=== PATIENT | female | born 1945 | race Caucasian/White ===

== ENCOUNTER 2018-05-15 07:43 | Emergency (ER) | payer MEDICARE | END 2018-05-15 09:03 | disposition home or self-care (01) | LOC: M ED 07:43 | DX: M17.12 Unilateral primary osteoarthritis, left knee (principal); I10 Essential (primary) hypertension; E11.9 Type 2 diabetes mellitus without complications; K21.9 Gastro-esophageal reflux disease without esophagitis; M85.862 Other specified disorders of bone density and structure, left lower leg; Z79.82 Long term (current) use of aspirin; Z79.84 Long term (current) use of oral hypoglycemic drugs; Z79.899 Other long term (current) drug therapy; Z91.89 Other specified personal risk factors, not elsewhere classified; Z88.5 Allergy status to narcotic agent; Z88.0 Allergy status to penicillin | CPT/HCPCS: 73564 ==

== ENCOUNTER → 2019-05-21 | Outpatient (CLI) | payer MEDICARE ==
[~2019-05-21] MED LIST: ASPI81TA21 PO; GABA-1171 PO; INDA125TA PO; LISI40TA PO; METF500T4 PO; PRAV40TA2 PO; PROHANCE 279.3MG/ML 15ML VIAL (A9576) As Ordered ONE; PROHANCE 279.3MG/ML 5ML VIAL (A9576) As Ordered ONE
--- NOTE | 2019-05-21 14:39 | REP ---
MRI LUMBAR SPINE WITHOUT AND WITH IV GADOLINIUM: HISTORY: Degenerative disc disease. Spinal stenosis. Comparison radiographs are from May 24, 2004. Gadolinium enhancement dose: 16 mL of intravenous ProHance. TECHNIQUE: Sagittal and axial T1- and T2-weighted scans are acquired in the usual fashion with and without fat saturation. Sequences include spin echo, turbo spin-echo, and STIR imaging sequences. MRI FINDINGS: There is straightening of the normal lumbar lordosis. Cortical and medullary bone signal intensity are normal. No bony destructive lesion is seen. No fracture or collapse is seen. No evidence of spondylolisthesis. Pedicles and posterior elements are intact. The tip of the conus medullaris is normal in position and appearance at L1. There is a 3.5 cm simple cyst in the medial cortex of the left kidney. There is another smaller cyst incompletely seen at the upper pole of the left kidney. Normal caliber aorta. No other extra spinal abnormality is seen. At the T12-L1 level, there is prominent posterior disc ridging effacing the ventral subarachnoid space. There is an annulus tear here indicating a broad-based disc protrusion. This does not compress or displace the cord. There is mild facet hypertrophy at T12-L1. L1-L2, there is mild to moderate diffuse disc bulging effacing the ventral subarachnoid space. No central canal stenosis is seen. No neural foraminal lesion is seen. No focal disc herniation noted. At L2-3 , there is degenerative disc narrowing and moderate diffuse disc bulging. There is mild central canal stenosis due to disc bulging, developmentally short pedicles, and ligamentum flavum and facet hypertrophy. Midline AP dimension of the thecal sac at L2-3 is 9 mm. There is some foraminal disc segment bulging which produces mild foraminal narrowing on the right. At the L3-4, there is mild diffuse disc bulging. Ligamentum flavum and facet hypertrophy are noted. There is left foraminal disc bulging at L3-4. No nerve root compression is seen however. Mild facet hypertrophy is noted. At L4-5 there is degenerative narrowing of the disc and diffuse disc bulging is seen. There is a right foraminal focal disc protrusion producing right neural foraminal narrowing. Left neural foramen is adequate. Canal size is mildly narrowed due to disc bulging, ligamentum flavum and facet hypertrophy. The mid line AP dimension of the thecal sac at this level is 10.3 mm. At L5-S1, there is moderate facet hypertrophy bilaterally. There is central disc bulging. Bilateral neural foraminal narrowing is seen at L5-L1 due to disc bulging and facet hypertrophy. No significant gadolinium enhancement is appreciated. IMPRESSION: Degenerative spondylosis changes. Central canal stenosis at L2-3 and L4-5. Neural foraminal narrowing as above. Left renal cysts. Electronically Signed by Avinash Razo MD 05/21/2019 03:45 P
== END ==
LOC: M RAD 09:20
PROVIDERS: ATTEND Neurological Surgery
DX: M48.061 Spinal stenosis, lumbar region without neurogenic claudication (principal); M51.36 Other intervertebral disc degeneration, lumbar region; N28.1 Cyst of kidney, acquired
CPT/HCPCS: 72158; A9576

== ENCOUNTER 2019-07-31 09:28 | Day surgery (SDC) | payer MEDICARE ==
[~2019-07-31] VITALS: Ht 160 cm; Wt 79.3 kg
[~2019-07-31 09:28] MED LIST changes: +CHOL100029 PO; +FAMO40TA3 PO; +METF-791 PO; -METF500T4 PO; -PROHANCE 279.3MG/ML 15ML VIAL (A9576) As Ordered ONE; -PROHANCE 279.3MG/ML 5ML VIAL (A9576) As Ordered ONE
[2019-07-31] MEDS ORDERED: PROPOFOL 200 MG/20 ML VIAL As Ordered ONE (10:08)
[2019-07-31] MEDS ORDERED: LIDOCAINE 2% INJ 100 MG/5 ML SDV (FOR ANES.) As Ordered ONE (10:08)
[2019-07-31] MEDS ORDERED: NS 1,000 ML IV ONE (10:30)
[2019-07-31] MEDS ORDERED: fentaNYL 100 MCG/2 ML INJECTION (J3010) As Ordered ONE (11:45)
--- NOTE | 2019-07-31 12:39 | ROOR ---
Patient Name: Ivone Levy Procedure Date: 07/31/2019 11:37 AM Date of : 1945 Age: 73 Room: [facility] Gender: Female Note Status: Finalized Procedure: Upper GI endoscopy Indications: Heartburn, Suspected gastro-esophageal reflux disease Providers: Phoenix Albrecht MD Referring MD: MARKEL ARRIOLA MD Requesting Provider: Medicines: Monitored Anesthesia Care Complications: No immediate complications. Procedure: Pre-Anesthesia Assessment: - Prior to the procedure, a History and Physical was performed, and patient medications and allergies were reviewed. The patient is competent. The risks and benefits of the procedure and the sedation options and risks were discussed with the patient. All questions were answered and informed consent was obtained. Patient identification and proposed procedure were verified by the physician, the nurse and the anesthesiologist in the procedure room. Mental Status Examination: alert and oriented. Airway Examination: normal oropharyngeal airway and neck mobility. Respiratory Examination: clear to auscultation. CV Examination: normal. Prophylactic Antibiotics: The patient does not require prophylactic antibiotics. Prior Anticoagulants: The patient has taken no previous anticoagulant or antiplatelet agents. ASA Grade Assessment: II - A patient with mild systemic disease. After reviewing the risks and benefits, the patient was deemed in satisfactory condition to undergo the procedure. The anesthesia plan was to use monitored anesthesia care (MAC). Immediately prior to administration of medications, the patient was re-assessed for adequacy to receive sedatives. The heart rate, respiratory rate, oxygen saturations, blood pressure, adequacy of pulmonary ventilation, and response to care were monitored throughout the procedure. The physical status of the patient was re-assessed after the procedure. The Endoscope was introduced through the mouth, and advanced to the second part of duodenum. The upper GI endoscopy was accomplished without difficulty. The patient tolerated the procedure well. Findings: LA Grade A (one or more mucosal breaks less than 5 mm, not extending between tops of 2 mucosal folds) esophagitis with no bleeding was found in the distal esophagus. Biopsies were taken with a cold forceps for histology. Verification of patient identification for the specimen was done by the physician and nurse using the patient's name, date and medical record number. Estimated blood loss was minimal. The Z-line was regular and was found 40 cm from the incisors. Scattered moderate inflammation characterized by erythema and granularity was found in the gastric body and in the gastric antrum. Biopsies were taken with a cold forceps for Helicobacter pylori testing. The duodenal bulb and second portion of the duodenum were normal. Impression: - LA Grade A reflux esophagitis. Biopsied. - Z-line regular, 40 cm from the incisors. - Gastritis. Biopsied. - Normal duodenal bulb and second portion of the duodenum. Recommendation: - Patient has a contact number available for emergencies. The signs and symptoms of potential delayed complications were discussed with the patient. Return to normal activities tomorrow. Written discharge instructions were provided to the patient. - Resume previous diet. - Continue present medications. - Follow an antireflux regimen. - Await pathology results. - Telephone GI clinic for pathology results in 2 weeks. - Return to primary care physician. Phoenix Albrecht MD Phoenix Albrecht MD 07/31/2019 12:38:42 PM Electronically signed by Phoenix Albrecht MD Number of Addenda: 0 Note Initiated On: 07/31/2019 11:37 AM Estimated Blood Loss: Estimated blood loss was minimal.
[2019-07-31 12:55] VITALS: BP 117/67
--- NOTE | 2019-07-31 13:24 | ROOR ---
Patient Name: Ivone Levy Procedure Date: 07/31/2019 11:37 AM Date of : 1945 Age: 73 Room: [facility] Gender: Female Note Status: Finalized Procedure: Colonoscopy Indications: Screening patient at increased risk: Family history of 1st-degree relative with colorectal cancer at age 60 years (or older) Providers: Phoenix Albrecht MD Referring MD: MARKEL ARRIOLA MD Requesting Provider: Medicines: Monitored Anesthesia Care Complications: No immediate complications. Procedure: Pre-Anesthesia Assessment: - Prior to the procedure, a History and Physical was performed, and patient medications and allergies were reviewed. The patient is competent. The risks and benefits of the procedure and the sedation options and risks were discussed with the patient. All questions were answered and informed consent was obtained. Patient identification and proposed procedure were verified by the physician, the nurse and the anesthesiologist in the procedure room. Mental Status Examination: alert and oriented. Airway Examination: normal oropharyngeal airway and neck mobility. Respiratory Examination: clear to auscultation. CV Examination: normal. Prophylactic Antibiotics: The patient does not require prophylactic antibiotics. Prior Anticoagulants: The patient has taken no previous anticoagulant or antiplatelet agents. ASA Grade Assessment: II - A patient with mild systemic disease. After reviewing the risks and benefits, the patient was deemed in satisfactory condition to undergo the procedure. The anesthesia plan was to use monitored anesthesia care (MAC). Immediately prior to administration of medications, the patient was re-assessed for adequacy to receive sedatives. The heart rate, respiratory rate, oxygen saturations, blood pressure, adequacy of pulmonary ventilation, and response to care were monitored throughout the procedure. The physical status of the patient was re-assessed after the procedure. The Colonoscope was introduced through the anus and advanced to the terminal ileum, with identification of the appendiceal orifice and IC valve. The colonoscopy was performed without difficulty. The patient tolerated the procedure well. The quality of the bowel preparation was good. The terminal ileum, ileocecal valve, appendiceal orifice, and rectum were photographed. Scope insertion time was 3 minutes. Scope withdrawal time was 11 minutes. The total duration of the procedure was 14 minutes. Findings: The perianal and digital rectal examinations were normal. The terminal ileum appeared normal. Two sessile polyps were found in the sigmoid colon and transverse colon. The polyps were 4 to 5 mm in size. These polyps were removed with a cold biopsy forceps. Resection and retrieval were complete. Verification of patient identification for the specimen was done by the physician and nurse using the patient's name, date and medical record number. Multiple small and large-mouthed diverticula were found in the sigmoid colon. There was no evidence of diverticular bleeding. Non-bleeding external and internal hemorrhoids were found during retroflexion. The hemorrhoids were large. Impression: - The examined portion of the ileum was normal. - Two 4 to 5 mm polyps in the sigmoid colon and in the transverse colon, removed with a cold biopsy forceps. Resected and retrieved. - Moderate diverticulosis in the sigmoid colon. There was no evidence of diverticular bleeding. - Non-bleeding external and internal hemorrhoids. Recommendation: - Patient has a contact number available for emergencies. The signs and symptoms of potential delayed complications were discussed with the patient. Return to normal activities tomorrow. Written discharge instructions were provided to the patient. - High fiber diet. - Continue present medications. - Await pathology results. - Repeat colonoscopy in 5 years for surveillance based on pathology results. - Telephone GI clinic for pathology results in 2 weeks. - Return to primary care physician. Phoenix Albrecht MD Phoenix Albrecht MD 07/31/2019 1:24:45 PM Electronically signed by Phoenix Albrecht MD Number of Addenda: 0 Note Initiated On: 07/31/2019 11:37 AM Estimated Blood Loss: Estimated blood loss was minimal.
== END 2019-07-31 13:15 | disposition home or self-care (01) ==
LOC: M OPP 09:28
PROVIDERS: ATTEND Internal Medicine Gastroenterology
DX: Z08 Encounter for follow-up examination after completed treatment for malignant neoplasm (principal); Z86.010 Personal history of colon polyps; Z80.0 Family history of malignant neoplasm of digestive organs; K64.8 Other hemorrhoids; D12.3 Benign neoplasm of transverse colon; K63.5 Polyp of colon; K57.30 Diverticulosis of large intestine without perforation or abscess without bleeding; K21.0 Gastro-esophageal reflux disease with esophagitis; K29.70 Gastritis, unspecified, without bleeding; R12 Heartburn; Z79.84 Long term (current) use of oral hypoglycemic drugs; Z79.899 Other long term (current) drug therapy; Z88.0 Allergy status to penicillin; Z88.5 Allergy status to narcotic agent
CPT/HCPCS: 43239; 45380; 88305; J3010

== ENCOUNTER 2019-10-24 21:57 | Emergency (ER) | payer MEDICARE ==
[~2019-10-24] VITALS: Ht 160 cm; Wt 82.3 kg
[2019-10-24] MEDS ORDERED: BENZONATATE 100 MG CAP PO ONE (22:30)
[2019-10-24] MEDS ORDERED: IPRATROPIUM 0.5MG/ALBUTEROL 2.5MG INH SOL UD 3ML (DUONEB)(J7620) NEB ONE (22:30)
[2019-10-25 00:08] LABS: BASO # 0.1 10^3/uL (0.0-0.2); BASO % 0.6 % (0.0-1.0); BLOOD UREA NITROGEN 13 MG/DL (7-18); CALCIUM LEVEL 9.8 MG/DL (8.8-10.2); CARBON DIOXIDE LEVEL 30 MEQ/L (21-32); CHLORIDE LEVEL 105 MEQ/L (98-107); CPK CREATINE PHOSPHOKINASE 109 U/L (26-192); CREATININE FOR GFR 0.79 MG/DL (0.55-1.30); EOS # 0.4 10^3/uL (0.0-0.5); EOS % 4.2 % (0.0-3.0); GLOMERULAR FILTRATION RATE > 60.0 (>39); GLUCOSE, FASTING 123 MG/DL (70-100); HEMATOCRIT 38.9 % (36.0-47.0); HEMOGLOBIN 12.5 g/dl (12.0-15.5); LYMPH # 1.8 10^3/uL (1.5-5.0); LYMPH % 17.6 % (24.0-44.0); MB/CK RELATIVE INDEX 1.83 (< OR =4); MEAN CORPUSCULAR HEMOGLOBIN 29.2 pg (27.0-33.0); MEAN CORPUSCULAR HGB CONC 32.1 g/dl (32.0-36.5); MEAN CORPUSCULAR VOLUME 90.9 fl (80.0-96.0); MONO # 0.7 10^3/uL (0.0-0.8); MONO % 7.1 % (0.0-5.0); NEUTROPHILS % 69.6 % (36.0-66.0); NT-PRO BNP 80 PG/ML (<125); PLATELET COUNT, AUTOMATED 258 10^3/uL (150-450); POTASSIUM SERUM 3.9 MEQ/L (3.5-5.1); RED BLOOD COUNT 4.28 10^6/uL (4.00-5.40); SODIUM LEVEL 142 MEQ/L (136-145); TROPONIN I < 0.02 NG/ML (< 0.10)
[2019-10-25] MEDS ORDERED: MUCI1TAB18 PO (00:26)
[2019-10-25] MEDS ORDERED: AZIT-12 PO (00:26)
[2019-10-25] MEDS ORDERED: TESS100C PO (00:26)
[2019-10-25] MEDS ORDERED: AZITHROMYCIN 250 MG TAB PO ONE (00:30)
[2019-10-25] MEDS ORDERED: ALBUTEROL 90 MCG/ACT 8GM HFA INHALER INH ONE (00:30)
[2019-10-25 00:37] VITALS: BP 120/81
--- NOTE | 2019-10-25 06:30 | REP ---
Clinical: Cough and wheeze . Comparison: 10/02/2010 . Technique: PA and lateral. Findings: The mediastinum and cardiac silhouette are normal. The lung hollins are clear and without acute consolidation, effusion, or pneumothorax. The skeletal structures are intact and normal. Impression: 1. No acute cardiopulmonary process. Electronically Signed by Jerry Mcarthur MD 10/25/2019 06:21 A
--- NOTE | 2019-10-25 07:55 | ECGEPIP ---
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
== END 2019-10-25 00:47 | disposition home or self-care (01) ==
LOC: M ED 21:57
DX: J84.9 Interstitial pulmonary disease, unspecified (principal); R05 Cough; R06.02 Shortness of breath; E11.9 Type 2 diabetes mellitus without complications; I10 Essential (primary) hypertension; K21.9 Gastro-esophageal reflux disease without esophagitis; E78.5 Hyperlipidemia, unspecified; Z79.84 Long term (current) use of oral hypoglycemic drugs; Z79.899 Other long term (current) drug therapy; Z88.0 Allergy status to penicillin; Z88.5 Allergy status to narcotic agent